=== PATIENT | male | born 1975 | race Caucasian/White ===

== ENCOUNTER 2024-04-16 19:02 | Emergency (ER) | payer OTHER, SELFPAY ==
[2024-04-16 19:06] VITALS: BP 161/101
[2024-04-16 19:57] VITALS: BP 171/99
--- NOTE | 2024-04-16 20:13 | ED.GENMED ---
History of Present Illness
General
Chief Complaint: Chest Pain
Source: patient
Time Seen by Provider: 04/16/24 19:55
History of Present Illness
History of Present Illness:
This patient is a very pleasant 48-year-old male who says he was watching TV last night and he developed 'tingling' in his lower face on the left side, across his entire forehead, and his right superior eyelid, and parts of his mid right face.
Patient states that he occasionally will get tingling in his left face which he attributes to 'neck problems' related to his discs. He was taking Neurontin for this for some time. He did not like, Neurontin made him feel, and states that he
usually just takes a Tylenol or Motrin, goes to bed, when he wakes up he no longer has it. He got concerned last night because he also noted sharp discomfort along the left side of the neck radiating up to the head. This was not sudden in onset
but rather gradual. He also noted that his left upper arm felt a little 'tight' associated with central chest pain that he notes only with movement. It is not pleuritic in nature. He says he has had this chest pain before' it is going to be
muscular that is what they always tell me'. Patient sees a poll clerk on a regular basis and his workups thus far have been unremarkable. This morning he felt a 'pinch' in the left anterior chest wall lasting 3 to 4 seconds and then resolving
completely. When asked about dyspnea he denies this. 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 He denies dizziness, focal weakness,
visual changes, back pain, abdominal pain, or other complaints.
Past History
Past History
ED Past Medical History: HTN, Hypercholesterolemia and Other (Migraine headaches)
ED Past Surgical History: Orthopedic (Knee ACL repair) and Other (Hernia repair)
Social History
Tobacco: Non-smoker
Alcohol: Occasional
Drug: None
Personal:
Living: with family
Employment: Employed
Family History
Family History: Hypertension and CAD
Phy Exam
Physical Exam
Physical Exam:
AAO times three, pleasant, making jokes, nontoxic
PERRL, mmm, o/p clear
neck supple, no meningismus or swelling noted
hrt rrr
lung cta, no w /r/r
abd soft, nt, nd
extrem no c/c/e
skin warm, well perfused
neuro intact
psych appropriate
back nontender
Scores
Heart Score for Chest Pain Patients
STEMI patient?: Not applicable
Course
Orders/Labs/Results
Orders:
Orders
04/16/24 19:04
EKG [Electrocardiogram (*1)] Urgent
Reason for Study: Chest Pain
EKG- Treatment ONCE
04/16/24 20:13
Cardiac Monitoring- Treatment ONCE
Pulse Ox/cont/shift [RESP] Stat
Quantity: 1
04/16/24 20:15
Complete Blood Count/No Diff Urgent
Comprehensive Metabolic Panel Urgent
D-Dimer Urgent
Troponin I Urgent
04/16/24 21:47
CT Chest Angio W/wo Iv Contras Urgent
Comment:
Reason For Exam: cp, tingling, htn
04/16/24 22:13
Troponin I Urgent
Abnormal Lab Results
04/16/24
20:15
RBC 4.69 L 10^6/uL
(4.70-6.10)
MPV 10.5 H fL
(7.4-10.4)
Glucose 102 H mg/dl
(70-99)
04/16/24 20:15
04/16/24 20:15
Vital Signs
Initial and Last Documented VS:
Initial Vital Signs
Temp Pulse Resp BP Pulse Ox
98.2 F 86 18 161/101 98
04/16/24 19:06 04/16/24 19:06 04/16/24 19:06 04/16/24 19:06 04/16/24 19:06
Last Documented Vital Signs
Temp Pulse Resp BP Pulse Ox
98.2 F 84 13 147/82 98
04/16/24 19:06 04/16/24 23:00 04/16/24 23:00 04/16/24 23:00 04/16/24 22:34
MDM/Problems Addressed
Differential Diagnosis Includes:
But not limited to ACS, degenerative disc disease related symptoms, neuropathy, tia/cva, muscular pain, etc. etc.
*Pulse Oximetry
Patient hypoxic: no
*EKG
Interpreted by ED Provider?: Yes
*Photographic Specialist Interpretation
Rate: Photographic Specialist- N/A
*Critical Care Note
Total Time (30-74mins, 75-104mins- exclusive of procedures): Not Applicable
Update Note
Update Note:
ECG reviewed by me, normal sinus rhythm, normal rate, normal axis, no acute ischemia
Highly doubt neurological acute process such as TIA/CVA, etc. source of patient's symptoms given distribution of tingling which is very nonspecific and nonlocalizing, no other associated neurological findings or complaints, etc.
Patient presents to the Emergency Department with
Number and Complexity of Problems Addressed at the Encounter
� Chronic conditions affecting care:
� Acute Exacerbation and/or Progression of Chronic Illness:
� Differential Diagnosis includes:
Amount and/or Complexity of Data to be Reviewed and Analyzed
� I performed an independent evaluation of and my interpretation is:
EKG:
CT:formal read 'No acute cardiopulmonary process. No aortic aneurysm or dissection. No pulmonary embolism identified. No pneumothorax or effusion.'
Xrays:
Laboratory Studies:unremkarable, trop X2 wnl
Other:
� Review of other/old records reveals: 2020, stress test: '
Normal treadmill stress test.
No significant change from stress test dated 12/25/2017.
� Clinical information was obtained by an independent historian: who is bedside
� Prescriptions/Medications Considered but not given:
� Further testing considered but not performed:
Risk of Complications and/or Morbidity or Mortality of Patient Management
� Social determinants of health affecting care:
� Discussion with other providers (PCP, Hospitalists, Consultants, etc):
� Escalation of care including admission/observation vs risk of discharge considered: pt remains stable, without sxs. w/u unremarkable here, however prompt cards f/u recommended.
ED Attending Note
-
Portions of this chart may have been created with voice recognition software.� Occasional wrong word or��sound alike� substitutions may have occurred due to the inherent limitations of voice recognition software.
Discharge Plan
Departure
Patient Disposition: Home (Routine Discharge)
Date of Disposition: 04/16/24
Time of Disposition: 23:35
Patient with high blood pressure during this ER visit?: Yes
Condition: Good
Discharge Problem:
Chest pain
Instructions: Paresthesia (DC), Chest Pain CBC Follow Up, BLOOD PRESSURE
Prescriptions:
No Action
lisinopril 5 MG tablet
5 mg PO DAILY
amitriptyline 10 MG tablet
30 mg PO HS
diclofenac sodium 75 MG tablet,delayed release (DR/EC)
75 mg PO BID PRN (Reason: pain, take with food) Qty: 30 0RF
ibuprofen 600 mg tablet
600 mg PO Q6H PRN (Reason: Pain) Qty: 10 0RF
amoxicillin-pot clavulanate [Augmentin] 250-62.5 mg/5 mL suspension for reconstitution
15 ml PO BID 7 Days Qty: 210 0RF
Referrals:
Ethan Caicedo CRNP [Family Provider] -
Gregg Pope MD [Active] - Next open appointment
Activity Restrictions/Additional Instructions:
IF YOU DEVELOP INCREASING/NEW/PERSISTENT PAIN OR TINGLING, TROUBLE BREATHING, FEVER, VOMITING, DIZZINESS, OR OTHER WORRISOME SIGNS, GO TO THE ER IMMEDIATELY!
Interventions
Interventions:
*General Assessment Last Done: 04/16/24 20:12
*Neglect/Abuse Screening Last Done: 04/16/24 20:12
*ED COVID-19 Vaccine History Last Done: 04/16/24 20:12
ED- Cardiac Assessment Last Done: 04/16/24 20:08
Discharge Date and Time
Print Language: SLOVENIAN
[2024-04-16 20:26] LABS: Hemoglobin 14.2 g/dL (13.0-18.0); Mean Corp Hgb Conc. 35.5 g/dL (33.0-37.0); Mean Corpuscular Hgb 30.3 pg (27.0-31.0); Mean Corpuscular Volume 85.3 fL (80.0-94.0); Mean Platelet Volume 10.5 fL (7.4-10.4); Platelet Count 196 10^3/uL (130-400); Red Blood Cell Count 4.69 10^6/uL (4.70-6.10); Red Cell Dist. Width 12.6 % (11.5-14.5); White Blood Cell Count 7.6 10^3/uL (4.8-10.8)
[2024-04-16 20:38] LABS: ALT (SGPT) 28 U/L (0-50); AST (SGOT) 29 U/L (17-59); Albumin 4.2 g/dl (3.5-5.0); Alkaline Phosphatase 75 U/L (38-126); Blood Urea Nitrogen 17 mg/dl (9-20); Carbon Dioxide 24 mmol/L (22-30); Chloride 106 mmol/L (98-107); Glucose 102 mg/dl (70-99); Potassium 4.1 mmol/L (3.5-5.1); Sodium 138 mmol/L (135-145); Total Bilirubin 0.5 mg/dl (0.2-1.3); Total Protein 6.7 g/dl (6.3-8.2); eGFR > 60.00
[2024-04-16 20:40] LABS: D-Dimer 0.33 ug/mlFEU (0.00-0.50)
[2024-04-16 20:50] LABS: Troponin I < 0.012 ng/ml
[2024-04-16 21:00] VITALS: BP 136/90
[2024-04-16 22:00] VITALS: BP 150/91
[2024-04-16 22:55] VITALS: BP 163/85
[2024-04-16 23:00] VITALS: BP 147/82
[2024-04-16 23:03] LABS: Troponin I < 0.012 ng/ml
== END 2024-04-16 23:47 | disposition home or self-care (01) ==
LOC: EMR 19:02
PROVIDERS: EMERGENCY PHYSICIAN Emergency Medicine; FAMILY PHYSICIAN Nurse Practitioner Family
DX: R07.89 Other chest pain (principal); I10 Essential (primary) hypertension
CPT/HCPCS: 99285; 71275; 80053; 84484; 85027; 85379; 93005; Q9967

== ENCOUNTER → 2024-11-11 16:34 | Outpatient (REF) | payer OTHER, SELFPAY | LOC: HWRAD 16:34 | PROVIDERS: ATTENDING PHYSICIAN Family Medicine | DX: M25.531 Pain in right wrist (principal); M25.532 Pain in left wrist; M25.642 Stiffness of left hand, not elsewhere classified; M25.641 Stiffness of right hand, not elsewhere classified | CPT/HCPCS: 73110; 73130 ==

== ENCOUNTER → 2024-12-07 14:26 | Outpatient (REF) | payer OTHER, SELFPAY | LOC: RAD 14:26 | PROVIDERS: ATTENDING PHYSICIAN Nurse Practitioner Family | DX: N50.811 Right testicular pain (principal) | CPT/HCPCS: 76870; 76882; 93976 ==

== ENCOUNTER 2024-12-14 06:22 | Day surgery (SDC) | payer OTHER, SELFPAY | END 2024-12-14 12:06 | disposition home or self-care (01) | LOC: GI 06:22 | PROVIDERS: ATTENDING PHYSICIAN Internal Medicine Gastroenterology | DX: K57.30 Diverticulosis of large intestine without perforation or abscess without bleeding (principal); K57.32 Diverticulitis of large intestine without perforation or abscess without bleeding; K64.8 Other hemorrhoids | CPT/HCPCS: 45378 ==

== ENCOUNTER → 2024-12-16 12:59 | Outpatient (REF) | payer OTHER, SELFPAY | LOC: EMG 12:59 | PROVIDERS: ATTENDING PHYSICIAN Physician Assistant; FAMILY PHYSICIAN Nurse Practitioner Family | DX: M79.601 Pain in right arm (principal); M79.602 Pain in left arm | CPT/HCPCS: 95886; 95911 ==